=== PATIENT | male | born 1975 | race Caucasian/White ===

== ENCOUNTER 2021-01-28 17:17 | Emergency (ER) | payer BC ==
[2021-01-28 19:17] LABS: Bilirubin Negative (Negative); Blood, Urine Negative (Negative); Glucose, Urine (Dipstick) Negative (Negative); Ketone, Urine Negative (Negative); Leukocyte Negative (Negative); Nitrite Negative (Negative); Protein, Urine (Dipstick) Negative (Neg-Trace); Urobilinogen 0.2 mg/dL (Less than 2)
[2021-01-28 19:24] LABS: Clarity Clear (Clear); Specific Gravity, Urine 1.034 (1.002-1.036)
[2021-01-28 19:26] LABS: Bacteria/HPF None Seen HPF (None Seen); RBC/HPF 0-3 HPF (0-3); Squamous Epithelial None Seen HPF (0-3); WBC/HPF 0-3 HPF (0-3)
== END 2021-01-28 19:57 | disposition home or self-care (01) ==
LOC: ERS 17:17
DX: N43.3 Hydrocele, unspecified (principal); N50.3 Cyst of epididymis; Z79.899 Other long term (current) drug therapy
CPT/HCPCS: 76870; 81003; 93976